=== PATIENT | male | born 1950 | race African-American/Black ===

== ENCOUNTER → 2018-12-07 | Outpatient (CLI) | payer MEDICARE ==
[~2018-12-07] MED LIST: ATORVASTATIN CA40 MG PO; DOXEPIN HCL10 MG PO; FENOFIBRATE145 MG PO; FLUOCINONIDE15 GM TOP; FUROSEMIDE40 MG PO; IOPAMIDOL 370 MG/ML 200 ML INFUS..BTL INJ ONE; LASIX40 MG PO; LOSARTAN-HCTZ1 EAC1 PO; METOPROLOL TART50 MG PO; SODIUM CHLORIDE 0.9% 50ML 50 ML ONE
[2018-12-07 12:21] LABS: BLOOD UREA NITROGEN 10 mg/dL (7-26); BUN/CREATININE RATIO 12 (6-25); CREATININE, SERUM 0.85 mg/dL (0.72-1.25); EST GLOMERULAR FILTRATION RATE > 60 ML/MIN (60-)
--- NOTE | 2018-12-07 17:03 | Diagnostic Imaging Report ---
EXAM: CT Pelvis with contrast INDICATION: Elevated prostate-specific antigen. COMPARISON: None. TECHNIQUE: Pelvis were scanned utilizing a multidetector helical scanner from the iliac crest to the pubic symphysis after administration of IV contrast. Coronal and sagittal reformations were obtained. Routine protocol was performed. IV CONTRAST: 100 cc of [id number]. RADIATION DOSE: Total DLP: 428.1 mGy*cm Estimated effective dose: (DLP x 0.015 x size factor) mSv Dose modulation, iterative reconstruction, and/or weight based adjustment of the mA/kV was utilized to reduce the radiation dose to as low as reasonably achievable. COMPLICATIONS: None FINDINGS: LINES and TUBES: None. GI TRACT: Partially visualized. No abnormal distention, wall thickening, or evidence of bowel obstruction. Appendix is normal. Sigmoid diverticulosis without CT evidence of diverticulitis. PELVIC ORGANS/BLADDER: The bladder is partially decompressed. The prostate gland is not well evaluated. There is a 2.2 x 1.6 cm hyperdense area inferior to the bladder on series 2, image 41, possibly in the prostate. LYMPH NODES: No lymphadenopathy. VESSELS: Atherosclerotic calcifications of the distal aorta and branch vessels. PERITONEUM / RETROPERITONEUM: No free air or fluid. BONES: There are severe degenerative changes at L5-S1 with grade 2 anterolisthesis of L5 on S1. There are sclerotic endplate changes. There are moderate degenerative disc changes elsewhere in the visualized lower lumbar spine. There is an sclerotic area measuring up to 1 cm abutting the superior endplate of L4. Prominence chronic changes of the pubic symphysis, right greater than left, which could reflect degenerative changes or osteitis pubis. SOFT TISSUES: Unremarkable. IMPRESSION: Per the patient's self-reported clinical history, there is no prior history of prostatectomy. The prostate gland is not well evaluated. There is a hyperdense area measuring up to 2.2 cm inferior to the bladder, and may be a prostatic nodule. Suggest dedicated prostate MRI for further evaluation. Degenerative disc changes with sclerotic area measuring up to 1 cm abutting the superior endplate of L4. While this could represents chronic endplate changes, in the setting of rising PSA, bony lesion is not excluded. Dedicated lumbar spine MRI and/or bone scan may be considered for further evaluation. Signed by: Dr. Jemima Patterson MD on 12/07/2018 5:00 PM
== END ==
LOC: CT 11:25
PROVIDERS: ATTEND Urology
DX: R97.20 Elevated prostate specific antigen [PSA] (principal)
CPT/HCPCS: 36415; 72193; 82565; 84520; Q9967

== ENCOUNTER → 2019-01-14 | Outpatient (CLI) | payer MEDICARE ==
[~2019-01-14] MED LIST changes: -IOPAMIDOL 370 MG/ML 200 ML INFUS..BTL INJ ONE; -SODIUM CHLORIDE 0.9% 50ML 50 ML ONE
--- NOTE | 2019-01-14 18:19 | Diagnostic Imaging Report ---
MRI SPINE LUMBAR WO HISTORY: L4 vertebral lesion COMPARISON: CT of the pelvis 12/07/18 TECHNIQUE: Sagittal T1, sagittal T2, sagittal STIR, axial T2, coronal T2, and axial proton density weighted images of the lumbar spine were obtained without contrast. DISCUSSION: Number of non-rib bearing lumbar vertebral bodies: 5. Alignment: Normal lordosis. No scoliosis. Vertebrae: Approximately 1.4 cm T2/STIR hyperintense lesion is seen in the upper L4 vertebral body. Similar, smaller nodular T2/STIR hyperintense lesion is seen in the L3 superior endplate. No other similar lesions are seen in the visualized spine and pelvis. Otherwise, no evidence fractures, infection or neoplasm. Conus medullaris: Normal, ends at approximately L1-L2 Cauda equina: There is mild cauda equina crowding at the conus level. Otherwise, no masses or arachnoiditis. Posterior paraspinal muscles: Well preserved. No signal abnormalities. Soft tissues: No signal abnormalities. Moderate to severe multilevel disc degeneration is most prominent at L5-S1. Associated L5-S1 endplate sclerosis is better seen on prior CT. T2/STIR hyperintensity within the L5-S1 disc may be due to annular fissure. 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 T10-T11: Disc bulge without significant canal or foraminal stenosis. T11-T12: Patent canal and foramina T12-L1: Mild canal stenosis due to disc bulge and ligamentum flavum thickening. No significant foraminal stenosis. L1-L2: Moderate canal stenosis due to disc bulge and ligamentum flavum thickening. Both lateral recesses are slightly effaced. Mild bilateral foraminal stenoses due to disc bulge and facet arthrosis. L2-L3: Mild to moderate canal stenosis due to disc bulge and ligamentum flavum thickening. Mild bilateral foraminal stenoses due to disc bulge and facet arthrosis. L3-L4: Mild canal stenosis due to disc bulge and ligamentum flavum thickening. Mild right and moderate left foraminal stenoses due to disc bulge and facet arthrosis. L4-L5: Mild canal stenosis due to disc bulge and ligamentum flavum thickening. Moderate bilateral foraminal stenoses due to disc bulge and facet arthrosis. L5-S1: Unchanged grade 2 anterolisthesis of L5 on S1 due to chronic bilateral L5 pars defects. Severe bilateral foraminal stenoses, right greater than left, due to uncovered disc bulge and facet slippage. No significant canal stenosis. IMPRESSION: 1. Indeterminate small nodular T2/STIR hyperintense lesions in the L4 and L3 vertebral bodies (2 total) could be atypical hemangiomas. 2. 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 3. Unchanged, underlying grade 2 anterolisthesis of L5 on S1 due to chronic bilateral L5 pars defects 4. Multilevel congenital/degenerative canal stenoses - moderate at L1-L2 and mild to moderate at L2-L3. 5. Multilevel bilateral degenerative foraminal stenoses - severe bilaterally at L5-S1, right side greater than left. Signed by: Dr. Espinoza Clemens M.D. on 01/14/2019 6:15 PM
== END ==
LOC: MRI 14:14
PROVIDERS: ATTEND Family Medicine
DX: S34.114A Complete lesion of L4 level of lumbar spinal cord, initial encounter (principal)
CPT/HCPCS: 72148